=== PATIENT | male | born 1935 | race Two or more races ===

== ENCOUNTER 2016-06-01 12:01 | Outpatient (CLI) | payer MEDICARE, OTHER | END 2016-06-01 23:59 | disposition home or self-care (01) | LOC: RAD 12:01 | PROVIDERS: ATTEND Family Medicine | DX: Z01.818 Encounter for other preprocedural examination (principal); J98.11 Atelectasis; M47.894 Other spondylosis, thoracic region | CPT/HCPCS: 71020-TC ==

== ENCOUNTER 2016-06-15 05:07 | Day surgery (SDC) | payer MEDICARE, OTHER ==
[2016-06-15] MEDS ORDERED: IV SET PRIMARY 1 EA INFUS.SET MC ONE (06:38)
[2016-06-15] MEDS ORDERED: IV LR 1000 ML 1,000 ML ONE (06:38)
[2016-06-15] MEDS ORDERED: NEEDLELESS EST SET LARGE BORE 1 EA INFUS.SET MC ONE (06:39)
[2016-06-15] MEDS ORDERED: DEXAMETHASONE SOD PHOSPHATE 10 MG/ML VIAL ONE (07:07)
[2016-06-15] MEDS ORDERED: IOHEXOL 50 ML IV ONE (07:07)
== END 2016-06-15 08:15 ==
LOC: DS 05:07
PROVIDERS: ATTEND Anesthesiology
DX: M43.06 Spondylolysis, lumbar region (principal); M51.37 Other intervertebral disc degeneration, lumbosacral region
CPT/HCPCS: 62323; 72020; A6402; J1100; J7120; Q9967

== ENCOUNTER 2016-09-09 05:57 | Day surgery (SDC) | payer MEDICARE, OTHER ==
[2016-09-09] MEDS ORDERED: NEEDLELESS EST SET LARGE BORE 1 EA INFUS.SET MC ONE (06:31)
[2016-09-09] MEDS ORDERED: IV LR 1000 ML 1,000 ML ONE (06:31)
[2016-09-09] MEDS ORDERED: IV SET PRIMARY 1 EA INFUS.SET MC ONE (06:31)
[2016-09-09] MEDS ORDERED: BETA ACET/BET NA PHOS MDV 6 MG/ML VIAL ONE (06:53)
[2016-09-09] MEDS ORDERED: IOHEXOL 240MG/ML 50 ML IV ONE (06:54)
[2016-09-09] MEDS ORDERED: DEXAMETHASONE SOD PHOSPHATE 10 MG/ML VIAL ONE (07:25)
[2016-09-09] MEDS ORDERED: DEXAMETHASONE SOD PHOSPHATE 4 MG/ML VIAL ONE (07:26)
== END 2016-09-09 08:25 | disposition home or self-care (01) ==
LOC: DS 05:57
PROVIDERS: ATTEND Anesthesiology
DX: M47.27 Other spondylosis with radiculopathy, lumbosacral region (principal); M51.36 Other intervertebral disc degeneration, lumbar region; Z79.82 Long term (current) use of aspirin; I25.10 Atherosclerotic heart disease of native coronary artery without angina pectoris; E78.5 Hyperlipidemia, unspecified; I10 Essential (primary) hypertension; N40.0 Benign prostatic hyperplasia without lower urinary tract symptoms
CPT/HCPCS: 62323; 72020; A6209; J0702; J7120; Q9966; Z7610; J1100

== ENCOUNTER 2017-01-19 07:48 | Outpatient (CLI) | payer MEDICARE, OTHER ==
[~2017-01-19 07:48] MED LIST: ASPI81TA2 PO; ATOR10TA PO; CLOP75TA2 PO; FINA5TAB11 PO; METO-302 PO; PANT40TA4 PO; TAMS-12 PO; VALS80TA2 PO
[2017-01-19] MEDS ORDERED: REGADENOSON 0.4 MG/5 ML DISP.SYRIN IVP ONE (09:00)
== END 2017-01-19 23:59 | disposition home or self-care (01) ==
LOC: NM 07:48
PROVIDERS: ATTEND Internal Medicine Cardiovascular Disease
DX: I25.10 Atherosclerotic heart disease of native coronary artery without angina pectoris (principal); Z95.5 Presence of coronary angioplasty implant and graft
CPT/HCPCS: 78452; A9502; J2785

== ENCOUNTER 2017-03-23 06:11 | Day surgery (SDC) | payer MEDICARE, OTHER ==
[2017-03-23] MEDS ORDERED: BUPIVACAINE 0.25% 75 MG/30 ML VIAL ONE (08:12)
[2017-03-23] MEDS ORDERED: IOHEXOL 50 ML IV ONE (08:12)
[2017-03-23] MEDS ORDERED: TRIAMCINOLONE ACETONIDE SUSP 40 MG/ML 1 ML ONE ×2 (08:15)
== END 2017-03-23 09:00 | disposition home or self-care (01) ==
LOC: DS 06:11
PROVIDERS: ATTEND Anesthesiology
DX: M53.3 Sacrococcygeal disorders, not elsewhere classified (principal); M47.817 Spondylosis without myelopathy or radiculopathy, lumbosacral region; I65.21 Occlusion and stenosis of right carotid artery; I25.119 Atherosclerotic heart disease of native coronary artery with unspecified angina pectoris; M54.10 Radiculopathy, site unspecified; I10 Essential (primary) hypertension; E78.5 Hyperlipidemia, unspecified; N40.0 Benign prostatic hyperplasia without lower urinary tract symptoms; Z98.890 Other specified postprocedural states; Z79.899 Other long term (current) drug therapy
CPT/HCPCS: G0260 ×5; 72170-TC; A6402; J3490; Q9967

== ENCOUNTER 2017-08-23 10:14 | Outpatient (CLI) | payer MEDICARE, OTHER ==
[~2017-08-23 10:14] MED LIST changes: +ASPI-1169 PO; -ASPI81TA2 PO; +CLOP75TA15 PO; -CLOP75TA2 PO; -METO-302 PO; +METO-356 PO
== END 2017-08-23 23:59 | disposition home health service (06) ==
LOC: MSC 10:14
PROVIDERS: ATTEND Anesthesiology
DX: M51.36 Other intervertebral disc degeneration, lumbar region (principal); M47.816 Spondylosis without myelopathy or radiculopathy, lumbar region; M47.27 Other spondylosis with radiculopathy, lumbosacral region; M53.3 Sacrococcygeal disorders, not elsewhere classified; I25.10 Atherosclerotic heart disease of native coronary artery without angina pectoris; I65.23 Occlusion and stenosis of bilateral carotid arteries; I10 Essential (primary) hypertension; E78.5 Hyperlipidemia, unspecified; Z98.61 Coronary angioplasty status; Z79.82 Long term (current) use of aspirin

== ENCOUNTER 2018-05-11 06:40 | Outpatient (CLI) | payer MEDICARE, OTHER ==
[2018-05-11] MEDS ORDERED: REGADENOSON 0.4 MG/5 ML DISP.SYRIN IVP ONE (07:30)
== END 2018-05-11 23:59 | disposition home or self-care (01) ==
LOC: NM 06:40
PROVIDERS: ATTEND Internal Medicine Cardiovascular Disease
DX: R53.83 Other fatigue (principal); R06.02 Shortness of breath; I25.10 Atherosclerotic heart disease of native coronary artery without angina pectoris; Z95.5 Presence of coronary angioplasty implant and graft
CPT/HCPCS: 78452; A9502; J2785

== ENCOUNTER 2021-01-29 09:08 | Emergency (ER) | payer MEDICARE, OTHER ==
[~2021-01-29] VITALS: Ht 167.6 cm; Wt 72.6 kg
[~2021-01-29 09:08] MED LIST changes: -METO-356 PO; +METO25TA4 PO; -PANT40TA4 PO; +PANT40TA49 PO
--- NOTE | 2021-01-29 09:23 | NUR ---
TO ER BED 3, COMPLAIN OF LT SIDED CHEST, SHOULDER AND ARM PAIN X2-3WKS, AAOX3, BREATHING EVEN AND NON LABORED, EKG DONE, CONNECTED TO MONITOR, CHANGED INTO A GOWN
--- NOTE | 2021-01-29 09:23 | NUR ---
DR SOLIS AT BEDSIDE
[2021-01-29 09:33] LABS: BASOPHILS # (AUTO) 0.2 K/uL (0.0-0.2); BASOPHILS % (AUTO) 2.6 % (0.0-2.0); EOSINOPHILS % (AUTO) 0.6 % (0.0-6.0); HEMATOCRIT 46 % (39-51); HEMOGLOBIN 15.4 g/dL (13.5-17.5); LYMPHOCYTES # (AUTO) 1.5 K/uL (0.8-4.8); LYMPHOCYTES % (AUTO) 22.7 % (20.0-44.0); MEAN CORPUSCULAR HGB CONC 34 g/dl (31.0-36.0); MEAN CORPUSCULAR VOLUME 98 fL (80-96); MONOCYTES # (AUTO) 0.3 K/uL (0.1-1.30); MONOCYTES % (AUTO) 4.7 % (2.0-12.0); NEUTROPHILS # (AUTO) 4.4 K/uL (1.8-8.9); NEUTROPHILS % (AUTO) 69.4 % (43.0-81.0); PLATELET COUNT (AUTO) 231 K/uL (150-450); RED BLOOD CELL COUNT(AUTO) 4.71 MIL/uL (4.5-6.0); WHITE BLOOD COUNT (AUTO) 6.4 K/uL (4.3-11.0)
--- NOTE | 2021-01-29 09:33 | NUR ---
CRIMPER OPERATOR AT BEDSIDE
[2021-01-29 09:45] LABS: CALCIUM, SERUM 9.1 mg/dL (8.5-10.1); CARBON DIOXIDE 28 mmol/L (21-32); CHLORIDE 105 mmol/L (98-107); CREATININE 1.2 mg/dL (0.6-1.3); GLUCOSE 113 mg/dL (74-106); SODIUM SERUM 144 mmol/L (136-145); UREA NITROGEN, BLOOD 20 mg/dL (7-18)
--- NOTE | 2021-01-29 10:26 | NUR ---
COVID SWAB DONE AND SENT TO THE LAB
--- NOTE | 2021-01-29 10:28 | NUR ---
CALLED [facility]. PAGED DR. JUAN
[2021-01-29] MEDS ORDERED: ASPIRIN 81 MG TAB.CHEW PO ONE (10:30)
[2021-01-29] MEDS ORDERED: ASPIRIN 81 MG TAB.CHEW ONE (10:33)
--- NOTE | 2021-01-29 10:53 | NUR ---
IV removed. Catheter intact and site benign. Pressure and 4x4 applied to site. No bleeding noted.Patient discharged to home in stable condition. Written and verbal after care instructions given. Patient verbalizes understanding of instruction.
[2021-01-29 11:09] VITALS: BP 139/75
== END 2021-01-29 11:10 | disposition home or self-care (01) ==
LOC: ER 09:17
DX: R07.9 Chest pain, unspecified (principal); Z53.29 Procedure and treatment not carried out because of patient's decision for other reasons; Z20.822 Contact with and (suspected) exposure to COVID-19; I25.10 Atherosclerotic heart disease of native coronary artery without angina pectoris; Z95.5 Presence of coronary angioplasty implant and graft; I11.9 Hypertensive heart disease without heart failure; E78.5 Hyperlipidemia, unspecified; K21.9 Gastro-esophageal reflux disease without esophagitis; N40.0 Benign prostatic hyperplasia without lower urinary tract symptoms; Z79.02 Long term (current) use of antithrombotics/antiplatelets; Z79.899 Other long term (current) drug therapy
CPT/HCPCS: 36415; 71045-TC; 80048-TC; 84484-TC; 85025-TC; C9803